=== PATIENT | male | born 1980 | race African-American/Black ===

== ENCOUNTER 2016-08-26 05:59 | Emergency (ER) | payer OTHER ==
[~2016-08-26] VITALS: Ht 177.8 cm; Wt 68.0 kg
[~2016-08-26 05:59] MED LIST: LEVE1000 PO
--- NOTE | 2016-08-26 06:12 | NUR ---
PT BIBA#102 PT HAD A WITNESSED SEIZURE, PT IS STILL POSTICAL, PT AOX2. RR EVEN AND UNLABORED. NO SOB NOTED. NAD NOTED. NO NVD AT THIS TIME. PT NOT DIAPHORETIC. PT GOWNED AND PLACED ON MONITOR. PT WAITING FOR MD DOBBINS. PT NOTED WITH CHIPPED TOOTH, ABRASION TO BRIDGE OF NOSE AND UPPER LIP. PT PLACED ON SEIZURE PRECAUTION.
--- NOTE | 2016-08-26 06:13 | NUR ---
DR. DE LEON AT BEDSIDE FOR EVAL.
--- NOTE | 2016-08-26 06:26 | NUR ---
PT REFUSED WOUND CARE. RISK AND BENEFITS EXPLAINED X3. PT STRONGLY REFUSED. DR DE LEON MADE AWARE.
--- NOTE | 2016-08-26 06:30 | NUR ---
PT TO CT.
--- NOTE | 2016-08-26 06:44 | NUR ---
PT RETURNED FROM CT.
--- NOTE | 2016-08-26 07:31 | NUR ---
REPORT GIVEN TO VINICIO JUAREZ FOR C.O.C
--- NOTE | 2016-08-26 08:30 | NUR ---
Patient is resting comfortably in bed with eyes closed. Easily aroused. VSS
[2016-08-26] MEDS ORDERED: LEVETIRACETAM (500MG) 1,000 MG in IV NS 0.9% 100 ML IV ONE (10:30)
[2016-08-26] MEDS ORDERED: IV SET PRIMARY PUMP SET 1 EA INFUS.SET MC ONE (10:39)
[2016-08-26] MEDS ORDERED: LEVETIRACETAM (250 MG) 250 MG TABLET PO ONE ×2 (10:51→11:00)
--- NOTE | 2016-08-26 11:06 | NUR ---
offered social work supervisor for homeless referral- the patient refused and would like to go back to the street. Neuro - intact; alert and oriented x 4.
--- NOTE | 2016-08-26 11:10 | NUR ---
skin abrasion - face - cleaned by MARÍA Michel. Topical antibiotics applied
[2016-08-26 11:11] VITALS: BP 99/56
--- NOTE | 2016-08-26 11:11 | NUR ---
Patient discharged to home/ street in stable condition. Written and verbal after care instructions given. Patient verbalizes understanding of instruction.
== END 2016-08-26 11:12 | disposition home or self-care (01) ==
LOC: ER 06:02
DX: R56.9 Unspecified convulsions (principal)
CPT/HCPCS: 70450-TC; 72125-TC; A4606; J1953; J7030; Z7610